=== PATIENT | male | born 1995 | race Hispanic/Latino ===

== ENCOUNTER 2016-12-12 20:53 | Emergency (ER) | payer SELFPAY ==
[2016-12-12 20:57] VITALS: BMI 28.2
--- NOTE | 2016-12-12 21:16 | ED PDOC ---
HPI: Psych/Substance Abuse Time Seen by Provider: 12/12/16 21:00 Chief Complaint (Nursing): Alcohol Ingestion Chief Complaint (Provider): ETOH - abuse History Per: Patient, EMS History/Exam Limitations: intoxication Additional Complaint(s): Pt states he does not know why he is here and wants to go home. Pt reports drinking over 10 beers. According to EMS police were called after patient was knocking on someone's door insisting his friends lived there. Past Medical History Reviewed: Historical Data, Nursing Documentation, Vital Signs Vital Signs: Last Vital Signs Temp 99.0 F 12/12/16 20:56 Pulse 120 H 12/12/16 20:56 Resp 18 12/12/16 20:56 BP 125/53 L 12/12/16 20:56 Pulse Ox 96 12/12/16 20:56 - Medical History PMH: No Chronic Diseases - Surgical History Surgical History: No Surg Hx - Family History Family History: States: No Known Family Hx - Living Arrangements Living Arrangements: With Family - Social History Current smoker - smoking cessation education provided: No Alcohol: Occasional Drugs: Denies - Allergies Allergies/Adverse Reactions: Allergies Allergy/AdvReac Type Severity Reaction Status Date / Time No Known Allergies Allergy Verified 12/12/16 21:00 Review of Systems Constitutional: Negative for: Fever, Chills Cardiovascular: Negative for: Chest Pain Respiratory: Negative for: Cough Gastrointestinal: Negative for: Nausea, Vomiting, Abdominal Pain Physical Exam - Reviewed Nursing Documentation Reviewed: Yes Vital Signs Reviewed: Yes - Physical Exam Appears: Positive for: Well, Non-toxic, No Acute Distress Head Exam: Positive for: ATRAUMATIC, NORMAL INSPECTION, NORMOCEPHALIC Skin: Positive for: Normal Color, Warm, DRY Eye Exam: Positive for: Normal appearance, EOMI, PERRL ENT: Positive for: Normal ENT Inspection Neck: Positive for: Normal, Painless ROM Cardiovascular/Chest: Positive for: Regular Rate, Rhythm Respiratory: Positive for: Normal Breath Sounds. Negative for: Accessory Muscle Use Back: Positive for: Normal Inspection Extremity: Positive for: Normal ROM Neurologic/Psych: Positive for: Alert, Mood/Affect (Aggitated ), Gait (Unsteady) , Other (Slurred speech). Negative for: Oriented - ECG O2 Sat by Pulse Oximetry: 96 Medical Decision Making Medical Decision Makin - Pt refused to change. Discussed concern about elopement risk. Pt aggressive and violent after given ativan and Haldol. 2335 - Pt sleeping vital stable. 0245 - Pt up and out of bed with clear speech and steady gait. Disposition - Clinical Impression Clinical Impression: Alcohol abuse - Patient ED Disposition Is Patient to be Admitted: No - Disposition Disposition: Routine/Home Disposition Time: 03:03 Condition: GOOD Instructions: Abuse of Alcohol (ED) Forms: Emme E2MS ([place])
[2016-12-13 05:24] VITALS: O2SAT 96
[2016-12-13 05:25] VITALS: TEMP 98.6
[2016-12-13 05:27] VITALS: BP 120/59; PULSE 93; RESP 16
== END 2016-12-13 06:20 | disposition home or self-care (01) ==
LOC: H.ER 20:53
DX: F10.10 Alcohol abuse, uncomplicated (principal)
CPT/HCPCS: 82948; 96372; 99284; G0480; J1630; J2060